=== PATIENT | female | born 1940 | race Caucasian/White ===

== ENCOUNTER 2017-03-16 12:30 | Outpatient (RCR) | payer MEDICARE ==
[2016-02-11 17:02] VITALS: BMI 21.8
[~2017-03-16 12:30] MED LIST: ACE325 PO; ALEN70TA43 PO; ASPI-757 PO; ATOR20TA22 PO; AZIT-18 PO; BUDE10.2 INH; CALC-852 PO; CEPH500T7 PO; COM14R IH; CYAN100T25 PO; DEX4 PO; DOCU-416 PO; DOCU-442 PO; FUR20 PO; FURO-45 PO; GLAUCOMA EYE DROPS; IPRA4AER IH; LEVO-85 PO; LIS20 PO; LORA-1455 PO; ONDA8TAB91 PO; OXYGENHOME INH; PER PO; POLY17PO25 PO; PRED-1 PO; PRED20TA6 PO; RIV10 PO; SOLI5TAB PO; TIOT4MIS3 INH; TRIC15T TOP; VAR1 PO
[2017-03-16 12:45] VITALS: BP 131/94
[2017-03-16 12:51] LABS: PLATELET COUNT, AUTOMATED 149 K/uL (150-450)
--- NOTE | 2017-03-16 15:01 | ONC Progress Note - NP.Halsey ---
Patient History Date of Service Mar 16, 2017 Reason For Visit/HPI Patient is seen in the clinic today for follow-up of her breast cancer. Patient had a CBC and a chemistry panel drawn earlier today and these were reviewed. Patient's calcium is elevated to 10.4. She is currently taking a calcium supplement. I will stop with supplement and reevaluate her calcium level with her next lab draw. Patient also is scheduled to see primary care provider and may have labs drawn prior their office visit. Overall patient is feeling very well and denies any concerns today. She was started on generic Fosamax with her last office visit and reports that since initiation her bone pain and bone aches have disappeared and she is no longer using a walker for ambulation. She is tolerating the medication significantly well and believes that it has helped with all of her pain. Patient does self breast exam and chest wall exam. She denies any new lumps or bumps. Patient continues to smoke 5-10 cigarettes a day. We rediscussed the risk of recurrent disease with her smoking and she did listen to what I had to say. Problem List (1) Breast cancer of upper-outer quadrant of right female breast (2) Age related osteoporosis (3) COPD (chronic obstructive pulmonary disease) Oncology History Patient was diagnosed at age 75. PRESENTATION Palpable mass of the right breast. DIAGNOSTIC EVALUATION 1. Bilateral diagnostic digital mammogram done on June 24, 2015, which showed highly suggestive malignancy. There was increased density in the upper outer quadrant of the right breast with pleomorphic calcification seen in this mass. There was irregular shadowing mass most prominent from 9 to 12 o'clock, but there was extension of the mass throughout the remainder of the central portion of the right breast. 2. Ultrasound of the right breast done on June 26, 2015 showed huge mass in the center portion of the right breast, too large to be measured by ultrasonogram. The mass was most prominent from 9 to 12 o'clock position. There was an additional hypoechoic irregular mass at the 7 o'clock position, 1.4 cm. There was irregular hypoechoic lymph node 2.3 cm in the right axilla. PROCEDURES 1. CT-guided biopsy of the right breast mass done on June 23, 2015 came back positive for right breast invasive, moderately differentiated ductal carcinoma. HER2/kitty was 2+ by immunohistochemistry, but negative for FISH. ER negative zero percent; WI negative zero percent; Ki-67 of 15.1% and p53 of 9%. 2. Right breast mastectomy and right axillary lymph node dissection done on August 06, 2015. Pathology positive for 4.3 cm invasive ductal carcinoma, moderately differentiated, grade II/III, 6/6 lymph nodes coming back positive for metastatic breast cancer. Margins were negative with positive lymphovascular invasion. ER negative, WI negative, HER2/kitty negative by FISH. STATING WORKUP CT of chest, abdomen and pelvis done on July 03, 2015 did reveal infrarenal fusiform abdominal aortic aneurysm 6.5 cm with intramural thrombus, but there was no evidenced of distal metastasis. STAGE Stage IIIA (pT2 pN2b cM0). TREATMENT 1. The patient received four cycles of dose-dense AC regimen with Adriamycin and cyclophosphamide between September 17, 2015 through October 29, 2015. 2. The patient started adjuvant weekly Taxol on November 26, 2015. She completed 10/12 cycles and stopped due to toxicities to include respiratory and neuropathy Mammogram completed on 07/26/2016 of the left breast was unremarkable. Patient will repeat in one year. Bone density scan is positive for 1. Lumbar spine: Osteoporosis. 2. Left Total Hip: Osteoporosis. 3. Femoral Neck: Bone Mineral Density is 0.602 g/cm2. Patient will be started on weekly generic Fosamax 70 mg. Patient was encouraged to continue with at least 2000 units of vitamin D and calcium. Calcium level on 03/16/2017 was elevated at 10.4. Calcium was discontinued. 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 Alcohol History She denies use Smoking History: Yes Smoking Status: Current: Every Day Smoker Exposure to Second Hand Smoke?: Yes Medications and Allergies Active Scripts Tiotropium Br/Olodaterol HCl (Stiolto Respimat Inhal [place]) 4 Gm Mist.inhal, 2 INH INH DAILY, #1 INHALER Prov:LEIGHTON PUTNAM MD 02/09/17 Furosemide (FUROSEMIDE) 20 Mg Tablet, 0.5 TAB PO DAILY, #90 TAB 1 Refill Prov:LEIGHTON PUTNAM MD 02/09/17 Cyanocobalamin (Vitamin B-12) (VITAMIN B-12) 100 Mcg Tablet, 200 MCG PO DAILY, # 30 TAB Prov:СВЕТЛАНА MACEP-BC, ONC 11/02/16 Alendronate Sodium (FOSAMAX) 70 Mg Tablet, 70 MG PO QWK, #4 TAB 11 Refills Prov:СВЕТЛАНА MACE RECREATIONAL AIDE-BC, ONC 08/03/16 Calcium Carbonate/Vitamin D3 (CALCIUM + VITAMIN D TABLET) 1 Each Tablet, 1 EACH PO DAILY, #1 TAB Prov:СВЕТЛАНА [facility], ONC 08/03/16 Reported Medications Oxygen (OXYGEN) Inha, 4 L INH, L 09/23/16 Allergies: Coded Allergies: famotidine (Verified Allergy, Severe, SOB and Cough, 01/10/17) pneumococcal vaccine (Verified Allergy, Intermediate, SWELLING AND REDNESS , 01/10/17) amlodipine (Verified Allergy, Unknown, 01/10/17) benazepril (Verified Allergy, Unknown, 01/10/17) ramipril (Verified Allergy, Unknown, 01/10/17) simvastatin (Verified Allergy, Unknown, 01/10/17) Review of System/Physical Exam Review of Systems All Systems Reviewed/Normal: Yes, Except as Noted Cardiovascular: Positive for Other (patient reports that she is currently taking furosemide tablet and feels that it increases her nocturia. Patient would like to hold the tablet. She denies any lower extremity edema. She will discuss this with primary care.) Respiratory: Positive for Shortness of Breath (patient is currently on oxygen per nasal cannula continuously) Hematologic: Positive for Fatigue, Positive for Weakness Physical Exam Vital Signs Temperature: 97.5 Pulse: 82 BP Systolic: 131 BP Diastolic: 94 Respiratory Rate: 18 O2 SAT: 83 O2 Delivery: Room Air Height (inches) 64.00 Weight lb: 114 Weight oz: 5.0 Weight Kg (Emilio): [phone] Pain: 0 ECOG Score: 1 General: Stable, Well Developed, Well Nourished, Not In Acute Distress HEENT: No Trauma, No Conjunctivitis, No Icterus, No Mucositis, No Oral Thrush Neck: Supple Lungs: Clear to Auscultation Heart: Regular Rate, Regular Rhythm, No Gallops Abdomen: Soft and Nontender, No Hepatosplenomegaly, No Masses, Other Extremities: No Cyanosis, No Clubbing, No Edema Lymphadenopathy: No None, No Cervical, No Subclavicular, No Axillary Psychiatric: Mood appears normal, Affect appears normal Skin: No Skin Rashes, No Bruising, No Purpura Other Right chest wall and right axilla status post mastectomy without evidence of palpable masses or abnormal areas. Left breast exam and left breast exam axilla without palpable masses. No nipple discharge or abnormality Diagnostic Studies Diagnostic Studies Laboratory Laboratory Tests 03/16/17 12:41 Laboratory Tests 03/16/17 12:41: White Blood Count 6.7, Red Blood Count 4.61, Hemoglobin 14.5, Hematocrit 43.6, Mean Corpuscular Volume 94.5, Mean Corpuscular Hemoglobin 31.5, Mean Corpuscular Hemoglobin Concent 33.3, Red Cell Distribution Width 15.5, Platelet Count 149, Mean Platelet Volume 8.6, Neutrophils (%) (Auto) 60.8, Lymphocytes (% ) (Auto) 27.6, Monocytes (%) (Auto) 10.0, Eosinophils (%) (Auto) 1.3, Basophils (%) (Auto) 0.3, Nucleated RBC Relative Count (auto) 0.0, Neutrophils # (Auto) 4.1, Lymphocytes # (Auto) 1.8, Monocytes # (Auto) 0.7, Eosinophils # (Auto) 0.1 , Basophils # (Auto) 0.0, Nucleated RBC Absolute Count (auto) 0.00, Sodium Level 133, Potassium Level 4.0, Chloride Level 93, Carbon Dioxide Level 32, Blood Urea Nitrogen 20, Creatinine 1.00, Glomerular Filtration Rate Calc 53.6, Random Glucose 91, Calcium Level 10.4, Total Bilirubin 0.6, Aspartate Amino Transf (AST/SGOT) 23, Alanine Aminotransferase (ALT/SGPT) 26, Alkaline Phosphatase 77, Total Protein 7.4, Albumin 4.0 Assessment and Plan Assessment & Plan 1. Stage IIA (pT2 pN2b cM0) right breast cancer with invasive ductal carcinoma , status post right mastectomy and lymph node dissection done August 06, 2015. Tumor was triple negative with ER, WI, HER2/kitty negative by FISH. The patient received four courses of dose-dense AC between September 17, 2015 through October. The patient started adjuvant weekly Taxol therapy for twelve courses on November 26, 2015 and completed only 10 treatments on 02/04/2016. Treatment was discontinued due to intolerance to include respiratory distress and peripheral neuropathy. Patient continues to be without evidence of disease. We' ll continue yearly mammograms and follow-up every 4 months for close monitoring with breast exam. 2. Hypertension, she is currently on Lasix and reports increased nocturia. She denies any lower extremity edema. She will discuss with primary provider regarding her nocturia. 3. Mammogram and bone density recommended today for further management and evaluation of her breast cancer. Patient will be due for repeat imaging in June 2017. Her last Bone density was positive for osteoporosis. Patient was started on generic Fosamax 70 mg weekly and vitamin D 2000 units daily with a calcium supplement. I will discontinue calcium supplement due to elevated calcium level on today's labs. Patient will continue vitamin D 2000 units daily. 4. Chronic obstructive pulmonary disease, on home oxygen-no concerns today, managed by primary 5. History of blood clots. No evidence of new clots or pain today. Patient is no longer on anticoagulation therapy. Plan: 1. Follow-up with myself in 4 months with CBC and CMP prior. 2. Patient will continue Fosamax 70 mg weekly for osteoporosis. 3. Patient will call if she has questions or concerns 4. She will continue vitamin D supplement 2000 units daily 5. Mammogram and bone density DEXA scan to be scheduled in 4 months prior to next follow-up visit. 6. Patient to follow with primary care and discuss the use of Lasix and increased nocturia. I personally spent a total of 30 minutes. Of that 25 minutes was counseling/ coordination of patient's care. See my note above for details. Copies to: LEIGHTON PUTNAM MD, NANCY J RECREATIONAL AIDE-BC, ONC Mar 16, 2017 15:01
== END 2017-03-17 09:10 | disposition home or self-care (01) ==
LOC: SPU 12:30
PROVIDERS: ATTEND Nurse Practitioner Family
DX: Z85.3 Personal history of malignant neoplasm of breast (principal); I10 Essential (primary) hypertension; Z92.21 Personal history of antineoplastic chemotherapy; J44.9 Chronic obstructive pulmonary disease, unspecified; Z86.2 Personal history of diseases of the blood and blood-forming organs and certain disorders involving the immune mechanism; M81.0 Age-related osteoporosis without current pathological fracture; F17.210 Nicotine dependence, cigarettes, uncomplicated; Z79.899 Other long term (current) drug therapy; R06.02 Shortness of breath; R53.1 Weakness; R53.83 Other fatigue
CPT/HCPCS: 36415; 82040; 82247; 82310; 82374; 82435; 82565; 82947; 84075; 84132; 84155; 84295; 84450; 84460; 84520; 85025

== ENCOUNTER → 2017-05-15 | Outpatient (CLI) | payer MEDICARE ==
[2016-02-11 17:02] VITALS: BMI 21.8
[~2017-05-15] MED LIST changes: +CHOL100059 PO
[2017-05-15 15:22] LABS: PLATELET COUNT, AUTOMATED 128 K/uL (150-450)
== END ==
LOC: LAB 14:42
PROVIDERS: ATTEND Emergency Medicine
DX: M81.0 Age-related osteoporosis without current pathological fracture (principal); D75.89 Other specified diseases of blood and blood-forming organs
CPT/HCPCS: 36415; 82306; 82310; 82607; 82746; 83970; 85025

== ENCOUNTER → 2017-07-11 | Outpatient (CLI) | payer MEDICARE ==
[2016-02-11 17:02] VITALS: BMI 21.8
[~2017-07-11] MED LIST changes: +AZIT-1 PO; +CYAN1000 IJ
== END ==
LOC: LAB 13:49
PROVIDERS: ATTEND Surgery
DX: E21.0 Primary hyperparathyroidism (principal)
CPT/HCPCS: 36415; 82310; 82330; 83970

== ENCOUNTER → 2017-07-19 | Outpatient (CLI) | payer MEDICARE ==
[2016-02-11 17:02] VITALS: BMI 21.8
--- NOTE | 2017-07-19 15:22 | RADIOLOGY IMAGING REPORT ---
[place] [facility] [place] Archana [place] : 1940 MR: [id number] V: [id number] EXAM DATE: ORDERING PHYSICIAN: RAMAKRISHNA HAINES TECHNOLOGIST: Location: [facility] Patient: Archana Hudson : 1940 Visit/Account:[id number] Date of Sevice: 07/19/2017 EXAMINATION: Nuclear Medicine Parathyroid Scan History: Hypercalcemia TECHNIQUE: 26.0 mCi technetium 99m Sestamibi was injected intravenously. Gamma camera images were ob tained of the head, neck and chest at 15 minutes and 3 hours in various orientations following radiot racer administration. COMPARISON STUDIES: none FINDINGS: 15 minute images: normal uptake of tracer by the salivary glands, the thyroid gland, and the myocard ium. Excreted hepatobiliary activity is seen beneath the diaphragm. 3 hour images: normal washout of tracer from the thyroid gland. No focal areas of abnormal radiotrac er uptake are identified in the neck or mediastinum to suggest the presence of a parathyroid adenoma. IMPRESSION: No evidence of parathyroid adenoma in the neck or chest. Report Dictated By: Marlen Gruber MD at 07/19/2017 3:18 PM Report E-Signed By: Marlen Gruber MD at 07/19/2017 3:19 PM WSN:[id number]
== END ==
LOC: NUC 01:06
PROVIDERS: ATTEND Surgery
DX: E83.52 Hypercalcemia (principal); E34.9 Endocrine disorder, unspecified
CPT/HCPCS: 78070; A9500

== ENCOUNTER → 2017-08-07 | Outpatient (CLI) | payer MEDICARE ==
[2016-02-11 17:02] VITALS: BMI 21.8
== END ==
LOC: LAB 14:54
PROVIDERS: ATTEND Surgery
DX: E53.8 Deficiency of other specified B group vitamins (principal); E21.0 Primary hyperparathyroidism
CPT/HCPCS: 36415; 82306; 82330; 82607

== ENCOUNTER → 2017-08-09 | Outpatient (CLI) | payer MEDICARE ==
[2016-02-11 17:02] VITALS: BMI 21.8
--- NOTE | 2017-08-09 15:27 | RADIOLOGY IMAGING REPORT ---
FACILITY: [facility] PATIENT NAME: Archana Hudson : 1940 MR: [id number] V: [id number] EXAM DATE: ORDERING PHYSICIAN: RAMAKRISHNA HAINES TECHNOLOGIST: Location: [facility] - [place] Patient: Archana Hudson : 1940 Visit/Account:[id number] Date of Sevice: 08/08/2017 THYROID HISTORY: Examine parathyroid COMPARISON: None. FINDINGS: SIZE: Normal. Right lobe: 3.6 x 1.1 x 1.2 cm Left lobe: 3.9 x 1.1 x 1.1 cm Isthmus: 1 mm PARENCHYMA: Homogeneous. NODULES: Right lobe: * There is a 6 mm ovoid hypoechoic structure medial aspect mid right lobe Left lobe: * There is a 5 mm well-circumscribed isoechoic nodule anterior aspect of the mid left lobe Isthmus: * None discrete. VASCULARITY: Within normal limits. ADDITIONAL FINDINGS: Parathyroid glands not definitively seen IMPRESSION: Parathyroid glands not definitively seen Subcentimeter thyroid nodules seen bilaterally REFERENCE: 2015 [place] [employer] Management Guidelines for Adult Patients with Thyroid Nodules and D ifferentiated Thyroid Cancer: The [place] [employer] Guidelines Task Force on Thyroid Nodul es and Differentiated Thyroid Cancer. SONOGRAPHIC PATTERNS: * Benign: Purely cystic nodules (no solid component); estimated risk of malignancy <1 percent; no bi opsy recommended. * Very Low Suspicion: Spongiform or partially cystic nodules without any of the sonographic features described in low, intermediate, or high suspicion patterns; estimated risk of malignancy <3 percent; consider FNA at > 2 cm (Observation without FNA is also a reasonable option). * Low Suspicion: Isoechoic or hyperechoic solid nodule, or partially cystic nodule with eccentric so lid areas, without microcalcification, irregular margin or ETE (extra-thyroidal extension), or taller than wide shape; estimated risk of malignancy 5-10 percent; recommend FNA at >1.5 cm. * Intermediate Suspicion: Hypoechoic solid nodule with smooth margins without microcalcifications, E TE (extra-thyroidal extension), or taller than wide shape; estimated risk of malignancy 10-20 percent ; recommend FNA at > 1 cm. * High Suspicion: Solid hypoechoic nodule or solid hypoechoic component of a partially cystic nodule with one or more of the following features: irregular margins (infiltrative, microlobulated), microc alcifications, taller than wide shape, rim calcifications with small extrusive soft tissue component, evidence of ETE (extra-thyroidal extension); estimated risk of malignancy >70-90 percent; recommend FNA at > 1 cm. NOTES: * Although a sonographically suspicious subcentimeter thyroid nodule without evidence of extrathyroi jaswant extension or sonographically suspicious lymph nodes may be observed with close sonographic follow -up rather than pursuing immediate FNA, patient age and preference may modify decision-making. A > 50% interval increase in nodule volume and/or development of new suspicious sonographic features are felt to be a valid reasons for potential re-aspiration of a nodule previously shown to have benig n FNA cytology. Report Dictated By: Jyothi Garcia MD at 08/09/2017 3:19 PM Report E-Signed By: Jyothi Garcia MD at 08/09/2017 3:22 PM WSN:[id number]
== END ==
LOC: US 08-08 07:13
PROVIDERS: ATTEND Surgery
DX: E04.2 Nontoxic multinodular goiter (principal)
CPT/HCPCS: 76536

== ENCOUNTER → 2017-08-24 | Outpatient (CLI) | payer MEDICARE ==
[2016-02-11 17:02] VITALS: BMI 21.8
--- NOTE | 2017-08-24 14:45 | RADIOLOGY IMAGING REPORT ---
[place] [facility] [place]: Archana Hudson : 1940 MR: [id number] V: [id number] EXAM DATE: ORDERING PHYSICIAN: RAMAKRISHNA HAINES TECHNOLOGIST: Location: [facility] - [place] Patient: Archana Hudson : 1940 Visit/Account:[id number] Date of Sevice: 08/24/2017 DEXA Scan Clinical history: Osteoporosis, hyperparathyroidism, primary. Comparison: DEXA scan from 06/23/2016. LUMBAR SPINE: The bone mineral density (BMD) measured from L1-L4 correlates with a Z-score of -0.1 and a T-score of -2.3 which is osteopenia as defined by the World Health Organization. The corresponding risk of fra cture in the lumbar spine is 4-6 times increased compared with a young adult reference population. T his value has increase by 9.3 % since the prior study. More than 5% change is considered significant . HIP: Bone mineral density (BMD) measured in the LEFT total hip region correlates with a Z-score -1 and a T -score of -3.2 which is osteoporosis as defined by the World Health Organization. The corresponding risk of fracture in the hip is a to 12 times increased compared to a young adult reference population . This value has increased by 2.6 % since the prior study. More than 5% change is considered signifi cant. T score left femoral neck -3.2 Bone mineral density (BMD) measured in the Femoral Neck region measures 0.589 g/cm?. IMPRESSION: 1. Lumbar spine: Osteopenia. There has been 9.3% increase in the bone mineral density since the pre vious exam. 2. Left Total Hip: Osteoporosis. There has been 2.6% increase in the bone mineral density since the previous exam. 3. Femoral Neck: Bone Mineral Density is 0.589 g/cm? The next DEXA scan of this patient should include the following sites: L1-L4 and the left hip. FRAX? WHO Fracture Risk Assessment Tool link: <http://www.shef.ac.uk/FRAX/tool.jsp?locationValue=9> PLEASE NOTE: 1) The World Health Organization defines low BMD as follows: T-score Normal > -1 Osteopenia < -1 and > -2.5 Osteoporosis < -2.5 without fractures Established osteoporosis < -2.5 with fractures 2) In general, you may wish to consider: Diagnosis Treatment Follow-up DEXA Normal BMD Prevention 2-3 years Osteopenia Prevention/therapy 1-2 years Osteoporosis Therapy Yearly 3) Fracture risk estimated from the T-score is more accurate for vertebral fractures (often spontane ous) than for hip fractures. Report Dictated By: Jyothi Garcia MD at 08/24/2017 2:40 PM Report E-Signed By: Jyothi Garcia MD at 08/24/2017 2:41 PM MABELN:[email or web address]
== END ==
LOC: RAD 00:54
PROVIDERS: ATTEND Surgery
DX: M81.0 Age-related osteoporosis without current pathological fracture (principal); M85.88 Other specified disorders of bone density and structure, other site
CPT/HCPCS: 77080

== ENCOUNTER → 2017-12-19 | Outpatient (CLI) | payer MEDICARE ==
[2016-02-11 17:02] VITALS: BMI 21.8
[2017-12-19 14:29] LABS: PLATELET COUNT, AUTOMATED 146 K/uL (150-450)
== END ==
LOC: LAB 14:11
PROVIDERS: ATTEND Emergency Medicine
DX: D69.6 Thrombocytopenia, unspecified (principal); E53.8 Deficiency of other specified B group vitamins
CPT/HCPCS: 36415; 82310; 82374; 82435; 82565; 82607; 82947; 84132; 84295; 84520; 85025

== ENCOUNTER 2018-01-05 15:30 | Emergency (ER) | payer MEDICARE ==
[2016-02-11 17:02] VITALS: Wt 52.2 kg
[~2018-01-05 15:30] MED LIST changes: -LEVO750T44 PO
--- NOTE | 2018-01-05 15:32 | ER Report ---
History and Physical Time Seen By MD: 15:32 HPI/ROS CHIEF COMPLAINT: Abdominal pain and vomiting HISTORY OF PRESENT ILLNESS: This is a 77-year-old female presents to the emergency department via EMS for abdominal pain and vomiting. Patient states that she's been vomiting all morning secondary to abdominal pain, does radiate to her back it is sharp and intense, it does wax and wane. No diarrhea, last stool yesterday. Minimal amount of urine output. No fevers or chills. No headaches. No chest pain. No rashes. REVIEW OF SYSTEMS: Constitutional: No fever, no chills. Eyes: No discharge. ENT: No sore throat. Cardiovascular: No chest pain, no palpitations. Respiratory: No cough, no shortness of breath. Gastrointestinal: As above. Genitourinary: No hematuria. Musculoskeletal: As above. Skin: No rashes. Neurological: No headache. Allergies: Coded Allergies: famotidine (Verified Allergy, Severe, SOB and Cough, 01/10/17) pneumococcal vaccine (Verified Allergy, Intermediate, SWELLING AND REDNESS, 01/10/17) amlodipine (Verified Allergy, Unknown, 01/10/17) benazepril (Verified Allergy, Unknown, 01/10/17) ramipril (Verified Allergy, Unknown, 01/10/17) simvastatin (Verified Allergy, Unknown, 01/10/17) Home Meds Active Scripts Alendronate Sodium (FOSAMAX) 70 Mg Tablet, 70 MG PO QWK, #4 TAB 11 Refills Prov:LEIGHTON CEBALLOS MD 07/07/17 Furosemide (FUROSEMIDE) 20 Mg Tablet, 0.5 TAB PO DAILY, #90 TAB 1 Refill Prov:LEIGHTON CEBALLOS MD 02/09/17 Reported Medications Cholecalciferol (Vitamin D3) (VITAMIN D3) 1,000 Unit Capsule, 1000 UNIT PO DAILY, CAPSULE 05/15/17 Oxygen (OXYGEN) Inha, 4 L INH, L 09/23/16 Past Medical/Surgical History Patient has a past medical and surgical history of AAA surgery, congestive heart failure, hypertension, hypocholesterolemia, chronic use of oxygen 4 L nasal cannula, COPD, wears glasses, breast cancer, chemotherapy. Reviewed Nurses Notes: Yes Hx Smoking: Yes Smoking Status: Current: Every Day Smoker Exposure to Second Hand Smoke?: Yes Hx Substance Use Disorder: No Hx Alcohol Use: No Constitutional Vital Sign - Last 24 Hours 01/05/18 01/05/18 01/05/18 01/05/18 15:28 15:31 16:00 16:30 Temp 97.9 Pulse 78 B/P (MAP) 169/101 169/101 (123) 175/93 (120) 192/104 (133) Pulse Ox 89 O2 Delivery Nasal Cannula 01/05/18 01/05/18 01/05/18 01/05/18 17:00 17:05 17:30 17:35 Pulse 69 73 ??? B/P (MAP) 193/107 (135) ???/??? (1665) Pulse Ox 94 95 01/05/18 01/05/18 01/05/18 01/05/18 18:00 18:05 18:24 18:30 Pulse 83 B/P (MAP) ???/??? (1665) 160/97 (118) 159/104 (122) Pulse Ox 90 01/05/18 01/05/18 01/05/18 01/05/18 18:35 19:00 19:05 19:30 Pulse 69 81 B/P (MAP) 189/110 (136) 174/103 (126) Pulse Ox 99 97 01/05/18 01/05/18 01/05/18 01/05/18 19:35 19:40 19:45 19:50 Pulse 85 75 73 78 Pulse Ox 88 91 93 92 01/05/18 01/05/18 01/05/18 01/05/18 19:55 20:00 20:05 20:10 Pulse 84 76 73 80 B/P (MAP) 180/108 (132) Pulse Ox 89 91 93 92 01/05/18 01/05/18 01/05/18 01/05/18 20:15 20:20 20:25 20:30 Pulse 60 60 61 62 B/P (MAP) 147/90 (109) Pulse Ox 88 90 94 92 Physical Exam General Appearance: [The patient is alert, has no immediate need for airway protection and no signs of toxicity.] [ ] [Eyes:] [Pupils equal and round no pallor or injection.] [ENT, Mouth:] [Mucous membranes are moist.] Respiratory: [There are no retractions, lungs are clear to auscultation.] Cardiovascular: [Regular rate and rhythm.] [ ] Gastrointestinal: [Abdomen is soft and non tender, no masses, bowel sounds normal.] [Neurological:] [ ] [Skin:] [Warm and dry, no rashes.] [Musculoskeletal:] [Neck is supple non tender.] [Extremities are nontender, nonswollen and have full range of motion.] [ ] [DIFFERENTIAL DIAGNOSIS: After history and physical exam differential diagnosis was considered for] [ ] Medical Decision Making Data Points Result Diagram: 01/05/18 1512 01/05/18 1512 Laboratory Hematology Test 01/05/18 15:12 01/05/18 16:08 Red Blood Count 4.58 M/uL (4.17-5.56) Mean Corpuscular Volume 93.1 fL (80.0-96.0) Mean Corpuscular Hemoglobin 31.5 pg (26.0-33.0) Mean Corpuscular Hemoglobin Concent 33.9 g/dL (32.0-36.0) Red Cell Distribution Width 14.4 % (11.5-14.5) Mean Platelet Volume 8.7 fL (7.2-11.1) Neutrophils (%) (Auto) 80.6 % (39.4-72.5) Lymphocytes (%) (Auto) 12.7 % (17.6-49.6) Monocytes (%) (Auto) 6.4 % (4.1-12.4) Eosinophils (%) (Auto) 0.0 % (0.4-6.7) Basophils (%) (Auto) 0.3 % (0.3-1.4) Nucleated RBC Relative Count (auto) 0.0 /100WBC Neutrophils # (Auto) 7.3 K/uL (2.0-7.4) Lymphocytes # (Auto) 1.2 K/uL (1.3-3.6) Monocytes # (Auto) 0.6 K/uL (0.3-1.0) Eosinophils # (Auto) 0.0 K/uL (0.0-0.5) Basophils # (Auto) 0.0 K/uL (0.0-0.1) Nucleated RBC Absolute Count (auto) 0.00 K/uL Sodium Level 133 mmol/L (137-145) Potassium Level 3.9 mmol/L (3.5-5.0) Chloride Level 94 mmol/L (98-107) Carbon Dioxide Level 30 mmol/L (22-31) Blood Urea Nitrogen 15 mg/dl (7-18) Creatinine 0.70 mg/dl (0.52-1.04) Glomerular Filtration Rate Calc > 60.0 Random Glucose 130 mg/dl (75-110) Calcium Level 9.9 mg/dl (8.4-10.2) Total Bilirubin 0.7 mg/dl (0.2-1.3) Aspartate Amino Transf (AST/SGOT) 28 U/L (0-35) Alanine Aminotransferase (ALT/SGPT) 26 U/L (0-56) Alkaline Phosphatase 84 U/L (0-126) Troponin I < 0.012 ng/ml Total Protein 7.7 g/dl (6.3-8.2) Albumin 4.1 g/dl (3.5-5.0) Lipase 175 U/L (23-300) Urine Color Yellow Urine Clarity Slightly-cloudy Urine pH 7.0 pH (4.8-9.5) Urine Specific [place] 1.008 Urine Protein 100 mg/dL (NEGATIVE) Urine Glucose (UA) Negative mg/dL (NEGATIVE) Urine Ketones Trace mg/dL (NEGATIVE) Urine Blood Small (NEGATIVE) Urine Nitrite Negative (NEGATIVE) Urine Bilirubin Negative (NEGATIVE) Urine Urobilinogen Negative mg/dL (0.2-1.9) Urine Leukocyte Esterase Negative (NEGATIVE) Urine RBC 3 /HPF (0-2/HPF) Urine WBC 1 /HPF (0-5/HPF) Urine Squamous Epithelial Cells Few /LPF (NONE-FEW) Urine Bacteria Negative /HPF (NONE-FEW) Urine Mucus None /HPF (NONE-FEW) Chemistry Test 01/05/18 15:12 01/05/18 16:08 White Blood Count 9.1 k/uL (4.5-11.0) Red Blood Count 4.58 M/uL (4.17-5.56) Hemoglobin 14.4 g/dL (12.0-16.0) Hematocrit 42.6 % (34.0-47.0) Mean Corpuscular Volume 93.1 fL (80.0-96.0) Mean Corpuscular Hemoglobin 31.5 pg (26.0-33.0) Mean Corpuscular Hemoglobin Concent 33.9 g/dL (32.0-36.0) Red Cell Distribution Width 14.4 % (11.5-14.5) Platelet Count 155 K/uL (150-450) Mean Platelet Volume 8.7 fL (7.2-11.1) Neutrophils (%) (Auto) 80.6 % (39.4-72.5) Lymphocytes (%) (Auto) 12.7 % (17.6-49.6) Monocytes (%) (Auto) 6.4 % (4.1-12.4) Eosinophils (%) (Auto) 0.0 % (0.4-6.7) Basophils (%) (Auto) 0.3 % (0.3-1.4) Nucleated RBC Relative Count (auto) 0.0 /100WBC Neutrophils # (Auto) 7.3 K/uL (2.0-7.4) Lymphocytes # (Auto) 1.2 K/uL (1.3-3.6) Monocytes # (Auto) 0.6 K/uL (0.3-1.0) Eosinophils # (Auto) 0.0 K/uL (0.0-0.5) Basophils # (Auto) 0.0 K/uL (0.0-0.1) Nucleated RBC Absolute Count (auto) 0.00 K/uL Glomerular Filtration Rate Calc > 60.0 Calcium Level 9.9 mg/dl (8.4-10.2) Total Bilirubin 0.7 mg/dl (0.2-1.3) Aspartate Amino Transf (AST/SGOT) 28 U/L (0-35) Alanine Aminotransferase (ALT/SGPT) 26 U/L (0-56) Alkaline Phosphatase 84 U/L (0-126) Troponin I < 0.012 ng/ml Total Protein 7.7 g/dl (6.3-8.2) Albumin 4.1 g/dl (3.5-5.0) Lipase 175 U/L (23-300) Urine Color Yellow Urine Clarity Slightly-cloudy Urine pH 7.0 pH (4.8-9.5) Urine Specific [place] 1.008 Urine Protein 100 mg/dL (NEGATIVE) Urine Glucose (UA) Negative mg/dL (NEGATIVE) Urine Ketones Trace mg/dL (NEGATIVE) Urine Blood Small (NEGATIVE) Urine Nitrite Negative (NEGATIVE) Urine Bilirubin Negative (NEGATIVE) Urine Urobilinogen Negative mg/dL (0.2-1.9) Urine Leukocyte Esterase Negative (NEGATIVE) Urine RBC 3 /HPF (0-2/HPF) Urine WBC 1 /HPF (0-5/HPF) Urine Squamous Epithelial Cells Few /LPF (NONE-FEW) Urine Bacteria Negative /HPF (NONE-FEW) Urine Mucus None /HPF (NONE-FEW) Urinalysis Test 01/05/18 16:08 Urine Color Yellow Urine Clarity Slightly-cloudy Urine pH 7.0 pH (4.8-9.5) Urine Specific [place] 1.008 Urine Protein 100 mg/dL (NEGATIVE) Urine Glucose (UA) Negative mg/dL (NEGATIVE) Urine Ketones Trace mg/dL (NEGATIVE) Urine Blood Small (NEGATIVE) Urine Nitrite Negative (NEGATIVE) Urine Bilirubin Negative (NEGATIVE) Urine Urobilinogen Negative mg/dL (0.2-1.9) Urine Leukocyte Esterase Negative (NEGATIVE) Urine RBC 3 /HPF (0-2/HPF) Urine WBC 1 /HPF (0-5/HPF) Urine Squamous Epithelial Cells Few /LPF (NONE-FEW) Urine Bacteria Negative /HPF (NONE-FEW) Urine Mucus None /HPF (NONE-FEW) EKG/Imaging EKG Interpretation 12 lead EKG: Time of EKG 1551. Rhythm: Normal sinus rhythm, ventricular rate 71 bpm. Lamy: normal QRS: normal ST segments: No ST depression or elevation identified. Poor T-wave progression in V2, V3, V4 and V5. As well as lead 3. This is slightly different from the 01/10/2017 EKG. Otherwise no significant changes noted. Imaging Location: [facility] [place] Patient: Archana Hudson : 1940 Visit/Account:[id number] Date of Sevice: 01/05/2018 Exam: ACUTE ABDOMEN SERIES 3 VIEW Indication: ABD PAIN, RAD Comparison: 03/02/2016 Findings: Single view of the chest shows a significantly enlarged heart. Mild pulmonary vascular congestion is present. No consolidation is identified. No pneumoperitoneum is seen. Within the abdomen there is a nonobstructive bowel gas pattern. Mild gaseous prominence of the colon is present. There is a endovascular aortic repair present. Compared to the prior study, the diameter of the top portion of the stent graft has increased from 2.8 cm to 3.5 cm. Question possible aneurysmal widening of the [place] abdominal aorta IMPRESSION: 1. Given the abrupt onset of the patient's symptoms and widening of the proximal origin of the patient's stent graft, question possible aortic pathology. If clinically appropriate, recommend CT of the abdomen and pelvis. 2. Cardiomegaly 3. Nonobstructive bowel gas pattern Results were discussed with ROBIN REZA at 01/05/2018 5:21 PM. Report Dictated By: Oscar Hutchinson at 01/05/2018 4:51 PM Report E-Signed By: Oscar Hutchinson at 01/05/2018 5:21 PM WSN:[facility] CT abdomen and pelvis without and with IV contrast Indication: Aortic aneurysm repair. Comparison: 07/03/2015.. Technique: Axial CT images were obtained through the abdomen and pelvis prior to and during injection of nonionic iodinated intravenous contrast. Reformatted coronal and sagittal images were also obtained. One of the following dose optimization techniques was utilized in the performance of this exam: Automated exposure control; adjustment of the mA and /or kV according to the patient's size; or use of an iterative reconstruction technique. Specific details can be referenced in the facility's radiology CT exam operational policy. Contrast: 75 ml of Isovue-370 IV contrast. Findings: Lower lung wang: Mild scarring, otherwise clear. Liver: No focal parenchymal abnormality of the liver. Biliary: Gallbladder appears unremarkable as well as the intra and extra hepatic biliary system. Pancreas: No focal abnormality. Spleen: Normal appearance. Adrenal glands: Unremarkable. Kidneys / retroperitoneum: No evidence of nephrolithiasis or hydronephrosis the right kidney does show some scarring and parenchymal calcifications with small cysts present. Left kidney shows no discrete focal abnormality. No solid renal lesions. Bowel / peritoneum / mesenteries: Visualized gastrointestinal tract is within normal limits without discrete focal normality. The appendix is not definitely visualized. Stomach shows debris in the lumen without focal abnormality. No free air, free fluid, fluid collections or areas of inflammation. Lymph node assessment: No pathologic adenopathy identified. Pelvic structures: Appear unremarkable. Vessels: The aorta does show atherosclerotic calcific changes. The infrarenal abdominal aorta does show an aneurysm again measuring approximately 7.5 x 7.4 cm. There is a aortic biiliac stent graft in place which appears to be in good position. Surrounding aneurysm does show linear calcifications and thrombus. There is no indication of acute extravasation of contrast. Some mild postsurgical changes are present. 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 The aorta is well opacified throughout its length. Normal opacif ication of the external iliac arteries and femoral arteries. The mesenteric vessels appear to be opacified. Musculoskeletal / Body wall: No acute or aggressive osseous abnormality. Degenerative changes spine. IMPRESSION: 1. Aortic biiliac stent graft is in place. The prominent infrarenal abdominal aortic aneurysm has the stent in the mid aspect. There is peripheral layering of the [place] aneurysm of calcifications and some thrombus with postsurgical changes. There is no indication of the acute extravasation of contrast or fluid collections. 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 2. Other chronic findings as above. Report Dictated By: Kirk Mcgrath at 01/05/2018 7:15 PM Report E-Signed By: Kirk Mcgrath at 01/05/2018 7:31 PM WSN:[id number] ED Course/Re-evaluation Clinical Indication for ER IV: Hydration, IV Access ED Course The patient was admitted to room. History of physical were obtained. Differential diagnoses were considered. An IV was started. A CBC, CMP and tropon in were obtained. Left studies unremarkable. Negative troponin. EKG showing normal sinus rhythm. Three-view abdominal series, showing clear megaly, no other concerns other than questionable proximal aneurysmal dilation, was recommended a CT of the abdomen and pelvis. CT of the abdomen and pelvis showing Aortic biiliac stent graft is in place. The prominent infrarenal abdominal aortic a neurysm has the stent in the mid aspect. There is peripheral layering of the [place] aneurysm of calcifications and some thrombus with postsurgical changes. There is no indication of the acute extravasation of contrast or fluid collections. 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 I did review these results with the patient. I also spoke with Dr. Weber, the general surgeon on-call as noted below, ultimately she felt as well as I that the patient will be able to go home at this time, she will need follow-up with her cardiovascular surgeon as she has not done this last couple of years. Sending the patient home with some pain medicine for her chronic back pain as well as a CD of the CT of her abdomen and pelvis so that she can follow-up with her cardiac vascular surgeon with the imaging. Patient was given 10 mg IV labetalol, blood pressure has improved, most recent 147/90, I also recommended that she follows up with her primary care provider early next week for reevaluation. The patient's rest understanding was discharged home. 01/05/2018 5:18:38 pm the radiologist called, concerned that there is an area on the proximal aorta around the repair site that is widening is compared to previous studies, suggested a CT of the abdomen and pelvis. I did speak with the patient, she is agreeable with the CT. 01/05/2018 8:11:53 pm I did speak with Dr. Weber, the general surgeon stone spreader operator regarding the CT results, we did retrieve the results and discuss them she felt that the patient would be would go home at this time, there is no indication of leaking on the CT. She did recommend that the patient follows up with her cardiovascular surgeon at [facility]. Decision to Disposition Date: Jan 05, 2018 Decision to Disposition Time: 20:57 Depart Departure Latest Vital Signs Vital Signs Date Time Temp Pulse Resp B/P (MAP) Pulse Ox O2 Delivery O2 Flow Rate FiO2 01/05/18 20:30 62 147/90 (109) 92 01/05/18 15:28 97.9 Nasal Cannula Impression: Primary Impression: Abdominal pain Additional Impression: Chronic low back pain Condition: Improved Disposition: HOME OR SELF-CARE Referrals: RAMAKRISHNA HAINES MD (PCP) LEIGHTON CEBALLOS MD 5 Days Patient Instructions: Abdominal Pain (ED), Back Pain (ED) Additional Instructions: There were no concerning findings on your laboratory studies today. On the x- ray. Abdomen there was some concern about enlargement of your aneurysm graft, the CT did not show any concerning findings however it is recommended that she follow up with your cardiovascular surgeon at [facility] for reevaluation, you should have regular follow-ups. The back pain due to experiencing could be the chronic back pain to have, I would recommend taking your regular medications as prescribed. I'm sending a copy of your abdomen pelvis CT home with you please take this with you when you follow-up with your cardiovascular surgeon at [facility]. Be sure to drink plenty of water. Get plenty of rest. Return to the emergency department for any other concerns or worsening symptoms. I would also recommend following up with your primary care provider, Dr. Ceballos for reevaluation within 1 week. Be very cautious when taking the Lortab, as a cause sedation, unsteadiness and constipation. Increase her dietary fiber. Problem Qualifiers Primary Impression: Abdominal pain Abdominal location: lower abdomen, unspecified Qualified Codes: R10.30 - Lower abdominal pain, unspecified Additional Impression: Chronic low back pain Back pain laterality: midline Sciatica presence: without sciatica Qualified Codes: M54.5 - Low back pain; G89.29 - Other chronic pain ROBIN REZA APPLICATION SECURITY ARCHITECT-BC Jan 05, 2018 15:32
[2018-01-05] MEDS ORDERED: ONDANSETRON 4 MG/2 ML VIAL IVP ONE (15:45)
[2018-01-05] MEDS ORDERED: fentaNYL CITR 100 MCG/2 ML AMP IVP ONE ×2 (15:45→16:35)
[2018-01-05 15:51] LABS: PLATELET COUNT, AUTOMATED 155 K/uL (150-450)
--- NOTE | 2018-01-05 16:12 | EKG ---
FACILITY: [facility] [place] PATIENT NAME: CUBA WIN : [id number] MR: [id number] V: [id number] EXAM DATE: ORDERING PHYSICIAN: ROBIN REZA TECHNOLOGIST: OMAR Test Reason : PAIN Blood Pressure : / mmHG Vent. Rate : 071 BPM Atrial Rate : 071 BPM P-R Int : 186 ms QRS Dur : 086 ms QT Int : 432 ms P-R-T Axes : 070 -26 050 degrees QTc Int : 469 ms Sinus rhythm Possible Left atrial enlargement Nonspecific T wave abnormality Abnormal ECG Confirmed by MAMIE WARD ([id number]) on 01/05/2018 9:16:45 PM Referred By: ROBIN Confirmed By:MAMIE WARD
[2018-01-05] MEDS ORDERED: MORPHINE 4 MG/ML SDV IVP ONE (17:20)
--- NOTE | 2018-01-05 17:24 | RADIOLOGY IMAGING REPORT ---
FACILITY: [facility] PATIENT NAME: Archana Hudson : 1940 MR: [id number] V: [id number] EXAM DATE: ORDERING PHYSICIAN: ROBIN REZA TECHNOLOGIST: Location: [facility] Patient: Archana Hudson : 1940 Visit/Account:[id number] Date of Sevice: 01/05/2018 Exam: ACUTE ABDOMEN SERIES 3 VIEW Indication: ABD PAIN, RAD Comparison: 03/02/2016 Findings: Single view of the chest shows a significantly enlarged heart. Mild pulmonary vascular con gestion is present. No consolidation is identified. No pneumoperitoneum is seen. Within the abdomen there is a nonobstructive bowel gas pattern. Mild gaseous prominence of the colon is present. There is a endovascular aortic repair present. Compared to the prior study, the diameter of the top portion of the stent graft has increased from 2.8 cm to 3.5 cm. Question possible aneurysmal widenin g of the [place] abdominal aorta IMPRESSION: 1. Given the abrupt onset of the patient's symptoms and widening of the proximal origin of the patie nt's stent graft, question possible aortic pathology. If clinically appropriate, recommend CT of the abdomen and pelvis. 2. Cardiomegaly 3. Nonobstructive bowel gas pattern Results were discussed with ROBIN REZA at 01/05/2018 5:21 PM. Report Dictated By: Oscar Hutchinson at 01/05/2018 4:51 PM Report E-Signed By: Oscar Hutchinson at 01/05/2018 5:21 PM WSN:[email or web address]
[2018-01-05] MEDS ORDERED: IOPAMIDOL 76% 75 ML INFUS BTL 75 ML ONE (17:35)
[2018-01-05] MEDS ORDERED: EMS NS 0.9%(*) 1000 ML BAG 1,000 ML IV ONE (19:00)
--- NOTE | 2018-01-05 19:34 | RADIOLOGY IMAGING REPORT ---
FACILITY: [facility] PATIENT NAME: Archana Hudson : 1940 MR: [id number] V: [id number] EXAM DATE: ORDERING PHYSICIAN: ROBIN REZA TECHNOLOGIST: Location: [facility] Patient: Archana Hudson : 1940 Visit/Account:[id number] Date of Sevice: 01/05/2018 CT abdomen and pelvis without and with IV contrast Indication: Aortic aneurysm repair. Comparison: 07/03/2015.. Technique: Axial CT images were obtained through the abdomen and pelvis prior to and during injecti on of nonionic iodinated intravenous contrast. Reformatted coronal and sagittal images were also obta ined. One of the following dose optimization techniques was utilized in the performance of this exam: Autom ated exposure control; adjustment of the mA and/or kV according to the patient's size; or use of an i terative reconstruction technique. Specific details can be referenced in the facility's radiology C T exam operational policy. Contrast: 75 ml of Isovue-370 IV contrast. Findings: Lower lung wang: Mild scarring, otherwise clear. Liver: No focal parenchymal abnormality of the liver. Biliary: Gallbladder appears unremarkable as well as the intra and extra hepatic biliary system. Pancreas: No focal abnormality. Spleen: Normal appearance. Adrenal glands: Unremarkable. Kidneys / retroperitoneum: No evidence of nephrolithiasis or hydronephrosis the right kidney does lupe w some scarring and parenchymal calcifications with small cysts present. Left kidney shows no discret e focal abnormality. No solid renal lesions. Bowel / peritoneum / mesenteries: Visualized gastrointestinal tract is within normal limits without d iscrete focal normality. The appendix is not definitely visualized. Stomach shows debris in the lumen without focal abnormality. No free air, free fluid, fluid collections or areas of inflammation. Lymph node assessment: No pathologic adenopathy identified. Pelvic structures: Appear unremarkable. Vessels: The aorta does show atherosclerotic calcific changes. The infrarenal abdominal aorta does sh ow an aneurysm again measuring approximately 7.5 x 7.4 cm. There is a aortic biiliac stent graft in p lace which appears to be in good position. Surrounding aneurysm does show linear calcifications and t hrombus. There is no indication of acute extravasation of contrast. Some mild postsurgical changes ar e present. 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 The aorta is well opacified throughout its length. Normal opacif ication of the external iliac arteries and femoral arteries. The mesenteric vessels appear to be opac ified. Musculoskeletal / Body wall: No acute or aggressive osseous abnormality. Degenerative changes spine. IMPRESSION: 1. Aortic biiliac stent graft is in place. The prominent infrarenal abdominal aortic aneurysm has the stent in the mid aspect. There is peripheral layering of the [place] aneurysm of calcifications and s ome thrombus with postsurgical changes. There is no indication of the acute extravasation of contrast or fluid collections. 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 2. Other chronic findings as above. Report Dictated By: Kirk Mcgrath at 01/05/2018 7:15 PM Report E-Signed By: Kirk Mcgrath at 01/05/2018 7:31 PM WSN:[id number]
[2018-01-05] MEDS ORDERED: LABETALOL HCL 100 MG/20ML VIAL IVP ONE (20:05)
[2018-01-05 20:30] VITALS: BP 147/90
[2018-01-05] MEDS ORDERED: ACET/HYDROC 5/325MG TH ER ONLY 2 TAB/BOTTLE PO ONE (21:00)
[2018-01-08] MEDS ORDERED: LEVO750T44 PO (12:46)
== END 2018-01-05 21:21 | disposition home or self-care (01) ==
LOC: ER 15:34
DX: R10.30 Lower abdominal pain, unspecified (principal); M54.5 Low back pain; G89.29 Other chronic pain
CPT/HCPCS: 74022; 74178; 81001; 83690; 84484; 85025; 93005; 96361; 96374; 96375; 96376; 99285; J2270; J2405; J3010; J3490; Q9967; 82040; 82247; 82310; 82374; 82435; 82565; 82947; 84075; 84132; 84155; 84295; 84450; 84460; 84520

== ENCOUNTER → 2018-01-05 | Outpatient (CLI) | payer MEDICARE ==
[2016-02-11 17:02] VITALS: BMI 21.8
[~2018-01-05] MED LIST changes: +LEVO750T44 PO
== END ==
LOC: AMB 15:04
PROVIDERS: ATTEND Nurse Practitioner
DX: R10.9 Unspecified abdominal pain (principal); R11.10 Vomiting, unspecified; M54.9 Dorsalgia, unspecified
CPT/HCPCS: A0425; A0427

== ENCOUNTER → 2018-01-08 | Outpatient (CLI) | payer MEDICARE ==
[2016-02-11 17:02] VITALS: BMI 21.8
[~2018-01-08] MED LIST changes: +LEVO750T44 PO
--- NOTE | 2018-01-08 12:51 | RADIOLOGY IMAGING REPORT ---
FACILITY: [facility] PATIENT NAME: Archana Hudson : 1940 MR: [id number] V: [id number] EXAM DATE: ORDERING PHYSICIAN: LEIGHTON PUTNAM TECHNOLOGIST: Location: [facility] Patient: Archana Hudson : 1940 Visit/Account:[id number] Date of Sevice: 01/08/2018 CHEST PA AND LAT INDICATION: Cough, history of pulmonary embolus, elevated CRP. COMPARISON: January 10, 2017 FINDINGS: The cardiac silhouette is upper limits normal in size. No pneumothorax. A small vague area of new c onsolidation in the right lower lung is seen on the frontal view. Otherwise clear lungs. Normal oss eous structures. No pleural fluid. IMPRESSION: Small patch of right lower lobe consolidation is most concerning for a pneumonia. If there is high c linical concern for a pulmonary infarct related to a pulmonary embolus CT angiogram should be conside red for further characterization. Follow-up chest radiograpah in 4-6 weeks should be considered to document resolution. Results were called to LEIGHTON PUTNAM on 01/08/2018 12:46 PM.. Report Dictated By: Lenard Chacon MD at 01/08/2018 12:43 PM Report E-Signed By: Lenard Chacon MD at 01/08/2018 12:46 PM WSN:[email or web address]
== END ==
LOC: LAB 10:42
PROVIDERS: ATTEND Emergency Medicine
DX: R05 Cough (principal)
CPT/HCPCS: 36415; 71046; 83880; 85379; 86140

== ENCOUNTER → 2018-05-28 | Outpatient (CLI) | payer MEDICARE ==
[2016-02-11 17:02] VITALS: BMI 21.8
[~2018-05-28] MED LIST changes: +TRI05T TP
[2018-05-28 12:26] LABS: PLATELET COUNT, AUTOMATED 214 K/uL (150-450)
[2018-05-28 12:53] LABS: LDL CHOLESTEROL 178 mg/dl
== END ==
LOC: LAB 12:10
PROVIDERS: ATTEND Emergency Medicine
DX: J96.11 Chronic respiratory failure with hypoxia (principal); E21.0 Primary hyperparathyroidism; M81.0 Age-related osteoporosis without current pathological fracture; J44.9 Chronic obstructive pulmonary disease, unspecified; E53.8 Deficiency of other specified B group vitamins
CPT/HCPCS: 36415; 82040; 82247; 82306; 82310; 82374; 82435; 82465; 82565; 82607; 82947; 83718; 84075; 84132; 84155; 84295; 84450; 84460; 84478; 84520; 85025

== ENCOUNTER → 2018-06-05 | Outpatient (CLI) | payer MEDICARE ==
[2016-02-11 17:02] VITALS: BMI 21.8
[~2018-06-05] MED LIST changes: +CYAN250T15 PO
--- NOTE | 2018-06-06 11:52 | RADIOLOGY IMAGING REPORT ---
FACILITY: [facility] PATIENT NAME: CUBA WIN : [id number] MR: [id number] V: [id number] EXAM DATE: [id number] ORDERING PHYSICIAN: LEIGHTON PUTNAM TECHNOLOGIST: Tamika Weeks PROCEDURE: MAMMOGRAM SCREENING LEFT UNILATERAL WITH CAD ASSISTED INTERPRETATION & 3D TOMOSYNTHESIS COMPARISON: Prior mammograms 07/26/16, 06/23/15. INDICATIONS: screening FINDINGS: The Left breast is heterogeneously dense which can obscure small masses. There is a regional grouping of round calcifications in the approximate 6 o'clock position of the Left breast that have increased when compared to the prior study. This may be related to slight difference in mammographic technique however Spot magnification view is recommended for further evaluation. DIAGNOSTIC CATEGORY 0--INCOMPLETE: NEED ADDITIONAL IMAGING EVALUATION. RECOMMENDATIONS: ADDITIONAL MAMMOGRAPHIC VIEWS REQUIRED: LEFT BREAST. IMPRESSION: BIRADS 0: Incomplete. Additional views of the Left breast are recommended. Dictated by: Jyothi Garcia M.D. on 06/05/2018 at 16:38 Transcribed by: CECILE on 06/06/2018 at 11:31 Approved by: Jyothi Garcia M.D. on 06/06/2018 at 11:51 [facility]
== END ==
LOC: MAMO 00:50
PROVIDERS: ATTEND Emergency Medicine
DX: R92.2 Inconclusive mammogram (principal); Z85.3 Personal history of malignant neoplasm of breast
CPT/HCPCS: 77063; 77067

== ENCOUNTER → 2018-06-20 | Outpatient (CLI) | payer MEDICARE ==
[2016-02-11 17:02] VITALS: BMI 21.8
[~2018-06-20] MED LIST changes: -CYAN100T25 PO; +CYAN100T26 PO
--- NOTE | 2018-06-21 10:43 | RADIOLOGY IMAGING REPORT ---
FACILITY: [facility] PATIENT NAME: CUBA WIN : [id number] MR: [id number] V: [id number] EXAM DATE: [id number] ORDERING PHYSICIAN: LEIGHTON PUTNAM TECHNOLOGIST: Sherrie Smith PROCEDURE:LEFT DIGITAL DIAGNOSTIC MAMMOGRAM WITH CAD ASSISTED INTERPRETATION & 3D TOMOSYNTHESIS COMPARISON:Prior mammograms 06/05/18, 07/26/16, 06/23/15. INDICATIONS:further evaluation FINDINGS: The patient received Spot magnification views in the Left CC & MLO projections. Again noted is the regional grouping of mostly round calcifications in the approximate 6 o'clock position of the Left breast in the posterior depth. These appear to have been present on prior mammograms dating back to 06/23/15 however direct comparison is somewhat difficult due to the difference in the imaging technology as the current examination is now performed with 3D breast Tomosynthesis. At least some of these calcifications appear to be vascular in etiology. A 6 month follow-up diagnostic Left mammogram is recommended unless clinical findings warrant more immediate attention. DIAGNOSTIC CATEGORY 3--PROBABLY BENIGN FINDING. RECOMMENDATIONS: SIX MONTH FOLLOW-UP DIAGNOSTIC MAMMOGRAM: LEFT BREAST. IMPRESSION: BIRADS 3: Probably benign finding. A 6 month diagnostic Left mammogram is recommended as described. Dictated by: Jyothi Garcia M.D. on 06/20/2018 at 16:46 Transcribed by: CECILE on 06/21/2018 at 10:19 Approved by: Jyothi Garcia M.D. on 06/21/2018 at 10:41 [facility]
== END ==
LOC: MAMO 00:26
PROVIDERS: ATTEND Emergency Medicine
DX: R92.1 Mammographic calcification found on diagnostic imaging of breast (principal)
CPT/HCPCS: 77061; 77065

== ENCOUNTER → 2018-07-16 | Outpatient (CLI) | payer MEDICARE ==
[2016-02-11 17:02] VITALS: BMI 21.8
[~2018-07-16] MED LIST changes: +ALBU8.5H IH; +IPRA3AMP10 IH
--- NOTE | 2018-07-16 15:02 | RADIOLOGY IMAGING REPORT ---
FACILITY: [facility] PATIENT NAME: Archana Hudson : 1940 MR: [id number] V: [id number] EXAM DATE: ORDERING PHYSICIAN: LEIGHTON PUTNAM TECHNOLOGIST: Location: [facility] [place] Patient: Archana Hudson : 1940 Visit/Account:[id number] Date of Sevice: 07/16/2018 Exam type: CHEST PA LAT History: Cough and oxygen use Comparison: January 08, 2018. Findings: There is hyperinflation of the lungs IMPRESSION: Similar to the prior study. Small chronic pleural parenchymal scarring. The cardiac silhouette is e nlarged but unchanged. 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 There is diffuse osteopenia the visualized bones. A vascular stent is incompletely imaged projects over the upper abdomen 1. Hyperinflation of the lung wang Chronic pleural parenchymal scarring No evidence of acute pulmonary consolidation Cardiomegaly and a severe ectasia of the thoracic aorta relatively unchanged Report Dictated By: Jyothi Garcia MD at 07/16/2018 2:55 PM Report E-Signed By: Jyothi Garcia MD at 07/16/2018 2:57 PM WSN:[email or web address]
== END ==
LOC: RAD 14:38
PROVIDERS: ATTEND Emergency Medicine
DX: I51.7 Cardiomegaly (principal); I77.810 Thoracic aortic ectasia; M85.88 Other specified disorders of bone density and structure, other site
CPT/HCPCS: 71046

== ENCOUNTER → 2018-09-04 | Outpatient (CLI) | payer MEDICARE ==
[2016-02-11 17:02] VITALS: BMI 21.8
--- NOTE | 2018-09-04 16:28 | RADIOLOGY IMAGING REPORT ---
FACILITY: [facility] [place] PATIENT NAME: Archana Hudson : 1940 MR: [id number] V: [id number] EXAM DATE: ORDERING PHYSICIAN: RAMAKRISHNA HAINES TECHNOLOGIST: Location: [facility] Patient: Archana Hudson : 1940 Visit/Account:[id number] Date of Sevice: 09/04/2018 DEXA Scan Clinical history: Osteoporosis and hyperparathyroidism. Comparison: DEXA scan from 08/16/2017. LUMBAR SPINE: The bone mineral density (BMD) measured from L1-L4 correlates with a Z-score of 0.4 and a T-score of -1.8 which is osteopenia as defined by the World Health Organization. The corresponding risk of frac ture in the lumbar spine is 3-4 times increased compared with a young adult reference population. Th is value has increased by 6.4 % since the prior study. More than 5% change is considered significant . HIP: Bone mineral density (BMD) measured in the LEFT total hip region correlates with a Z-score -0.9 and a T-score of -3.2 which is osteoporosis as defined by the World Health Organization. The correspondin g risk of fracture in the hip is 8-12 times increased compared to a young adult reference population. This value has decrease by 0.2 % since the prior study. More than 5% change is considered significa nt. T score left femoral neck -3.2 Bone mineral density (BMD) measured in the Femoral Neck region measures 0.591 g/cm?. IMPRESSION: 1. Lumbar spine: Osteopenia. There has been 6.4% increase in the bone mineral density since the pre vious exam. 2. Left Total Hip: Osteoporosis. There has been 0.2% decrease in the bone mineral density since the previous exam. 3. Femoral Neck: Bone Mineral Density is 0.591 g/cm? The next DEXA scan of this patient should include the following sites: L1-L4 and the left hip. FRAX? WHO Fracture Risk Assessment Tool link: <http://www.shef.ac.uk/FRAX/tool.jsp?locationValue=9> PLEASE NOTE: 1) The World Health Organization defines low BMD as follows: T-score Normal > -1 Osteopenia < -1 and > -2.5 Osteoporosis < -2.5 without fractures Established osteoporosis < -2.5 with fractures 2) In general, you may wish to consider: Diagnosis Treatment Follow-up DEXA Normal BMD Prevention 2-3 years Osteopenia Prevention/therapy 1-2 years Osteoporosis Therapy Yearly 3) Fracture risk estimated from the T-score is more accurate for vertebral fractures (often spontane ous) than for hip fractures. Report Dictated By: Jyothi Garcia MD at 09/04/2018 4:21 PM Report E-Signed By: Jyothi Garcia MD at 09/04/2018 4:23 PM WSN:[email or web address]
== END ==
LOC: RAD 00:49
PROVIDERS: ATTEND Surgery
DX: M81.0 Age-related osteoporosis without current pathological fracture (principal); E21.0 Primary hyperparathyroidism; M85.80 Other specified disorders of bone density and structure, unspecified site
CPT/HCPCS: 77080

== ENCOUNTER → 2018-09-25 | Outpatient (CLI) | payer MEDICARE ==
[2016-02-11 17:02] VITALS: BMI 21.8
== END ==
LOC: LAB 16:19
PROVIDERS: ATTEND Surgery
DX: E21.0 Primary hyperparathyroidism (principal)
CPT/HCPCS: 36415; 82330; 83970

== ENCOUNTER → 2018-09-28 | Outpatient (CLI) | payer MEDICARE ==
[2016-02-11 17:02] VITALS: BMI 21.8
--- NOTE | 2018-09-30 18:33 | RADIOLOGY IMAGING REPORT ---
FACILITY: PATIENT NAME: Archana Hudson : 1940 MR: [id number] V: [id number] EXAM DATE: ORDERING PHYSICIAN: RAMAKRISHNA HAINES TECHNOLOGIST: Location: [facility] Patient: Archana Hudson : 1940 Visit/Account:[id number] Date of Sevice: 09/28/2018 PARATHYROID IMAGING HISTORY: Primary hyperparathyroidism. TECHNIQUE: 24.0 mCi Technetium-99m Sestamibi was injected intravenously. Gamma camera images were ob tained of the head, neck and chest at 15 minutes and three hours in various orientations following ra diotracer administration. COMPARISON: 07/19/2017 parathyroid scan. FINDINGS: Neck: Physiologic or uptake in the salivary and thyroid glands, right thyroid lobe greater than left similar to June 2017 study. No abnormal focal persistent uptake on the delayed images. Mediastinum: Normal biodistribution. No abnormal uptake. IMPRESSION: No scintigraphic evidence of a parathyroid adenoma in the neck or the chest. Report Dictated By: Vikram Francis at 09/30/2018 6:22 PM Report E-Signed By: Vikram Francis at 09/30/2018 6:26 PM WSN:[email or web address]
== END ==
LOC: NUC 03:18
PROVIDERS: ATTEND Surgery
DX: E21.0 Primary hyperparathyroidism (principal)
CPT/HCPCS: 78070; A9500

== ENCOUNTER → 2018-10-02 | Outpatient (CLI) | payer MEDICARE ==
[2016-02-11 17:02] VITALS: BMI 21.8
--- NOTE | 2018-10-02 15:04 | RADIOLOGY IMAGING REPORT ---
[place] [facility] [place]: Archana Hudson : 1940 MR: [id number] V: [id number] EXAM DATE: ORDERING PHYSICIAN: RAMAKRISHNA HAINES TECHNOLOGIST: Location: [facility] [place] Patient: Archana Hudson : 1940 Visit/Account:[id number] Date of Sevice: 10/02/2018 THYROID HISTORY: Look for parathyroid adenomas COMPARISON: August 09, 2017 FINDINGS: SIZE: Normal. Right lobe: 4.8 x 1.4 x 1.4 cm Left lobe: 3.7 x 1.5 x 1 cm Isthmus: 1.6 mm PARENCHYMA: Homogeneous. NODULES: Right lobe: * Medial aspect of the mid right lobe there is a 6 mm well-circumscribed hypoechoic nodule relativel y unchanged Left lobe: * In the lateral aspect of the mid left lobe there is a 7 mm well-circumscribed isoechoic nodule whi ch is minimally increased from 5 mm previously Isthmus: * None discrete. VASCULARITY: Within normal limits. ADDITIONAL FINDINGS: Parathyroid glands not definitively seen IMPRESSION: Subcentimeter thyroid nodules bilaterally appear relatively unchanged Parathyroid glands not definitively seen REFERENCE: 2015 [place] [employer] Management Guidelines for Adult Patients with Thyroid Nodules and D ifferentiated Thyroid Cancer: The [place] [employer] Guidelines Task Force on Thyroid Nodul es and Differentiated Thyroid Cancer. SONOGRAPHIC PATTERNS: * Benign: Purely cystic nodules (no solid component); estimated risk of malignancy <1 percent; no bi opsy recommended. * Very Low Suspicion: Spongiform or partially cystic nodules without any of the sonographic features described in low, intermediate, or high suspicion patterns; estimated risk of malignancy <3 percent; consider FNA at > 2 cm (Observation without FNA is also a reasonable option). * Low Suspicion: Isoechoic or hyperechoic solid nodule, or partially cystic nodule with eccentric so lid areas, without microcalcification, irregular margin or ETE (extra-thyroidal extension), or taller than wide shape; estimated risk of malignancy 5-10 percent; recommend FNA at >1.5 cm. * Intermediate Suspicion: Hypoechoic solid nodule with smooth margins without microcalcifications, E TE (extra-thyroidal extension), or taller than wide shape; estimated risk of malignancy 10-20 percent ; recommend FNA at > 1 cm. * High Suspicion: Solid hypoechoic nodule or solid hypoechoic component of a partially cystic nodule with one or more of the following features: irregular margins (infiltrative, microlobulated), microc alcifications, taller than wide shape, rim calcifications with small extrusive soft tissue component, evidence of ETE (extra-thyroidal extension); estimated risk of malignancy >70-90 percent; recommend FNA at > 1 cm. NOTES: * Although a sonographically suspicious subcentimeter thyroid nodule without evidence of extrathyroi jaswant extension or sonographically suspicious lymph nodes may be observed with close sonographic follow -up rather than pursuing immediate FNA, patient age and preference may modify decision-making. A > 50% interval increase in nodule volume and/or development of new suspicious sonographic features are felt to be a valid reasons for potential re-aspiration of a nodule previously shown to have benig n FNA cytology. Report Dictated By: Jyothi Garcia MD at 10/02/2018 2:53 PM Report E-Signed By: Jyothi Garcia MD at 10/02/2018 2:56 PM MABELN:[email or web address]
== END ==
LOC: US 00:35
PROVIDERS: ATTEND Surgery
DX: E21.0 Primary hyperparathyroidism (principal)
CPT/HCPCS: 76536